=== PATIENT | male | born 1955 | race Two or more races ===

== ENCOUNTER → 2019-03-26 | Day surgery (SDC) | payer BC ==
[~2019-03-26] MED LIST: ASPIRIN81 MG PO; CRESTOR10 MG PO; FENTANYL CITRATE/PF 100MCG/2 ML INJ ONE; GLIMEPIRIDE2 MG PO; LIDOCAINE HCL 2% LOCAL INJ 5 ML SDV VIAL INJ ONE; METFORMIN HCL500 MG PO; MIDAZOLAM HCL 2 MG/2 ML VIAL ONE; PROPOFOL IV EMULSION 10 MG/ML 20 ML VIAL ONE; [UNRECOGNIZED DRUG - OTHER] PO
[2019-03-26 12:05] VITALS: BP 111/68
== END | disposition home or self-care (01) ==
LOC: OR 09:18
PROVIDERS: ATTEND Internal Medicine Gastroenterology
DX: Z12.11 Encounter for screening for malignant neoplasm of colon (principal); D12.5 Benign neoplasm of sigmoid colon; K64.8 Other hemorrhoids; Z71.3 Dietary counseling and surveillance; E66.3 Overweight; E10.9 Type 1 diabetes mellitus without complications; I10 Essential (primary) hypertension; F17.200 Nicotine dependence, unspecified, uncomplicated; Z01.810 Encounter for preprocedural cardiovascular examination; Z79.82 Long term (current) use of aspirin; Z79.84 Long term (current) use of oral hypoglycemic drugs; Z68.28 Body mass index [BMI] 28.0-28.9, adult
CPT/HCPCS: 36415; 45385; 82948; 88305; 93005; J2001; J2250; J2704; J3010